=== PATIENT | male | born 1970 | race Caucasian/White ===

== ENCOUNTER 2017-10-25 23:22 | Emergency (ER) | payer SELFPAY ==
[~2017-10-25] VITALS: Ht 180.3 cm; Wt 80.6 kg
[~2017-10-25 23:22] MED LIST: NO HOME MEDS
[2017-10-25 23:37] VITALS: BP 131/89
== END 2017-10-26 00:16 | disposition left against medical advice (07) | DRG 951 ==
LOC: ED 23:22 → LWOBS 10-26 00:16
DX: Z91.19 Patient's noncompliance with other medical treatment and regimen (principal)

== ENCOUNTER 2024-03-22 13:15 | Emergency (ER) | payer OTHER ==
[~2024-03-22] VITALS: Ht 180.3 cm; Wt 84.1 kg
[2024-03-22] VITALS (8 sets, daily range): BP systolic 88–123; BP diastolic 61–79
[2024-03-22] MEDS ORDERED: OPHTHALMIC IRRIGATION SOLUTION 118 ML BTL OU ONE (13:55)
[2024-03-22] MEDS ORDERED: TETRACAINE HCL 0.5 %/4 ML SOL OS ONE (13:55)
[2024-03-22] MEDS ORDERED: FLUORESCEIN SODIUM 1 MG EA OS ONE (13:55)
[2024-03-22] MEDS ORDERED: ERYTHROMYCIN O3.5 GM OS (14:20)
[2024-03-22] MEDS ORDERED: ERYTHROMYCIN OPTHALMIC 5 MG/GM TUBE OS ONE (14:20)
== END 2024-03-22 14:50 | disposition home or self-care (01) | DRG 125 ==
LOC: ED 13:15
DX: S05.02XA Injury of conjunctiva and corneal abrasion without foreign body, left eye, initial encounter (principal); V89.2XXA Person injured in unspecified motor-vehicle accident, traffic, initial encounter